=== PATIENT | female | born 1975 | race Two or more races ===

== ENCOUNTER 2016-05-17 06:24 | Day surgery (SDC) | payer OTHER ==
[~2016-05-17] VITALS: Ht 160 cm; Wt 78.0 kg
[~2016-05-17 06:24] MED LIST: JUNEL1 EACH PO; VITAMIN D34000 UNIT PO
[2016-05-17] MEDS ORDERED: ERGOCALCIF50000 UNIT PO (06:50)
[2016-05-17 06:52] VITALS: BP 129/79
[2016-05-17 11:33] VITALS: BP 137/77
[2016-05-17 12:28] VITALS: BP 140/80
[2016-05-17 14:26] VITALS: BP 134/67
[2016-05-17 16:36] VITALS: BP 136/70
[2016-05-17 16:53] VITALS: BP 136/70
== END 2016-05-17 17:00 | disposition home or self-care (01) ==
LOC: SDC 06:24
PROC: 0TUD7JZ Supplement Urethra with Synthetic Substitute, Via Natural or Artificial Opening (ICD-10-PCS; principal; 2016-05-17)
DX: N39.3 Stress incontinence (female) (male) (principal); E66.09 Other obesity due to excess calories; Z68.31 Body mass index [BMI] 31.0-31.9, adult; Z82.49 Family history of ischemic heart disease and other diseases of the circulatory system; Z88.0 Allergy status to penicillin
CPT/HCPCS: 87086; J0131; J0330; J0690; J1100; J1170; J2405; J2710; J3010

== ENCOUNTER 2016-12-07 22:38 | Emergency (ER) | payer OTHER ==
[~2016-12-07] VITALS: Ht 160 cm; Wt 76.6 kg
[~2016-12-07 22:38] MED LIST changes: +ERGOCALCIF50000 UNIT PO
[2016-12-07 23:06] LABS: HEMATOCRIT 38.3 % (36.0-46.0); MCH 29.4 PG (29.0-34.0); MCHC 33.9 G/DL (30.0-36.0); MCV 86.7 FL (83-99); MEAN PLAT.VOLUME 11.5 uM^3 (9.5-12.4); PLATELET COUNT 222 K/uL (156-360); RBC DIS.WIDTH-CV 12.7 % (11.8-14.6); RBC DIS.WIDTH-SD 40.2 % (39-53); RED BLOOD COUNT 4.42 M/uL (3.80-5.20); WHITE BLOOD COUNT 8.7 K/uL (4.1-10.2)
[2016-12-07 23:17] LABS: CHLORIDE 103 mEq/L (99-109); POTASSIUM 3.7 mEq/L (3.7-5.4); SODIUM 140 mEq/L (136-147)
[2016-12-07 23:19] LABS: GLUCOSE 94 mg/dL (70-99)
[2016-12-07 23:20] LABS: ADD MIUA? YES; BILIRUBIN NEGATIVE; BLOOD SMALL; COLOR YELLOW ((YELLOW)); GLUCOSE (STRIP) NEGATIVE; KETONES NEGATIVE; LEUKOCYTES SMALL; NITRITE NEGATIVE; PROTEIN (STRIP) NEGATIVE; SPECIFIC GRAVITY 1.026 (1.000-1.030)
[2016-12-07 23:21] LABS: ANION GAP 12 MEQ/L (2-14); TOTAL BILIRUBIN 0.4 mg/dL (0.0-1.0)
[2016-12-07 23:23] LABS: ALKALINE PHOSPHATASE 52 IU/L (3-129); GFR ESTIMATE (CALCULATED) > 59 mL/min/
[2016-12-07 23:24] LABS: UREA NITROGEN (BUN) 9 mg/dL (9-23)
[2016-12-07 23:33] LABS: QUANTITATIVE HCG < 4.0 MIU/ML
[2016-12-07 23:45] LABS: BACTERIA 2+ /HPF; EPITHELIAL CELLS 2+ /HPF; MUCUS 1+ /LPF; RED BLOOD CELLS 0-5 /HPF (0-5); UCUL ADDED? YES; WHITE BLOOD CELLS 0-5 /HPF (0-5)
[2016-12-08] MEDS ORDERED: BACTRIM,SEPT1 TABLET PO (01:01)
[2016-12-08] MEDS ORDERED: ZOFRAN4 MG PO (01:01)
[2016-12-08] MEDS ORDERED: MOTRIN600 MG PO (01:01)
[2016-12-08 01:13] VITALS: BP 145/98
== END 2016-12-08 01:14 | disposition home or self-care (01) ==
LOC: EME 22:38
DX: N39.0 Urinary tract infection, site not specified (principal); R10.9 Unspecified abdominal pain; Z88.0 Allergy status to penicillin
CPT/HCPCS: 74176; 80053; 81003; 84702; 85027; 87086; 99281; 99284

== ENCOUNTER 2017-02-10 07:51 | Emergency (ER) | payer OTHER ==
[~2017-02-10] VITALS: Ht 160 cm; Wt 82.1 kg
[~2017-02-10 07:51] MED LIST changes: +BACTRIM,SEPT1 TABLET PO; +BENTYL20 MG PO; +MOTRIN600 MG PO; +ZOFRAN ODT4 MG PO; +ZOFRAN4 MG PO
[2017-02-10 08:45] LABS: HEMATOCRIT 38.4 % (36.0-46.0); MCH 29.2 PG (29.0-34.0); MCHC 33.6 G/DL (30.0-36.0); MCV 86.9 FL (83-99); MEAN PLAT.VOLUME 10.9 uM^3 (9.5-12.4); PLATELET COUNT 190 K/uL (156-360); RBC DIS.WIDTH-CV 13.1 % (11.8-14.6); RBC DIS.WIDTH-SD 41.6 % (39-53); RED BLOOD COUNT 4.42 M/uL (3.80-5.20); WHITE BLOOD COUNT 4.7 K/uL (4.1-10.2)
[2017-02-10 08:54] LABS: CHLORIDE 107 mEq/L (99-109); SODIUM 140 mEq/L (136-147)
[2017-02-10 08:55] LABS: GLUCOSE 97 mg/dL (70-99)
[2017-02-10 08:57] LABS: ANION GAP 8 MEQ/L (2-14)
[2017-02-10 08:59] LABS: GFR ESTIMATE (CALCULATED) > 59 mL/min/
[2017-02-10 09:00] LABS: UREA NITROGEN (BUN) 10 mg/dL (9-23)
[2017-02-10 09:08] LABS: QUANTITATIVE HCG < 4.0 MIU/ML
[2017-02-10] MEDS ORDERED: FIORICET,ESG1 TABLET PO (10:14)
[2017-02-10 10:23] VITALS: BP 139/89
== END 2017-02-10 10:25 | disposition home or self-care (01) ==
LOC: EME 07:51
PROVIDERS: Nurse Practitioner Family
DX: R51 Headache (principal); R42 Dizziness and giddiness; Z88.0 Allergy status to penicillin
CPT/HCPCS: 70450; 80048; 84702; 85027; 99281; 99284; J1885

== ENCOUNTER → 2017-04-19 | Outpatient (CLI) | payer OTHER ==
[~2017-04-19] VITALS: Ht 160 cm; Wt 79.8 kg
[~2017-04-19] MED LIST changes: +FIORICET,ESG1 TABLET PO
== END | disposition home or self-care (01) ==
LOC: AMB 10:19
DX: K29.50 Unspecified chronic gastritis without bleeding (principal); B96.81 Helicobacter pylori [H. pylori] as the cause of diseases classified elsewhere; D13.0 Benign neoplasm of esophagus; K21.9 Gastro-esophageal reflux disease without esophagitis; G89.29 Other chronic pain; E66.09 Other obesity due to excess calories; Z68.31 Body mass index [BMI] 31.0-31.9, adult; Z82.49 Family history of ischemic heart disease and other diseases of the circulatory system; Z88.0 Allergy status to penicillin
CPT/HCPCS: 88305; 88342 TC; J2250